=== PATIENT | female | born 1945 | race Caucasian/White ===

== ENCOUNTER 2017-05-01 17:07 | Outpatient (CLI) | payer BC ==
[~2017-05-01 17:07] MED LIST: ALBU17AE26 INH; ALEN70TA3 PO; CITA20TA11 PO; FLUT1DIS3 INH; FURO20TA4 PO; KLOR-CON PO; OMEP20CA10 PO; URSO300C24 PO; VIT D2 PO; [UNRECOGNIZED DRUG - CODE] INH
== END 2017-05-01 20:53 | disposition home or self-care (01) ==
LOC: SRD 17:07
PROVIDERS: ATTEND Internal Medicine
DX: M77.31 Calcaneal spur, right foot (principal)